=== PATIENT | male | born 2000 | race Hispanic/Latino ===

== ENCOUNTER 2021-12-25 02:28 | Emergency (ER) | payer SELFPAY ==
--- NOTE | ~2021-12-25 | XR_ITS ---
EXAMINATION: XR hand RT min 3V DATE: 12/25/2021 02:53 INDICATION: Right hand pain. TECHNIQUE: 4 views of right hand were obtained. COMPARISON: None. FINDINGS: There is a comminuted fracture of neck of fifth metacarpal. The main distal fracture fragme nt demonstrates impaction and 20 degrees palmar angulation. Joint spaces are normal. IMPRESSION: 1. Comminuted fracture of neck of fifth metacarpal. Reviewed, dictated and finalized at location A.
[2021-12-25 02:34] VITALS: BP 102/51; PULSE 73; RESP 18; TEMP 36.1; O2SAT 99
--- NOTE | 2021-12-25 02:42 | ED.UPPEXIN ---
HPI - Extremity Injury (Upper) General Chief Complaint: Extremity Injury, Upper Stated Complaint: right hand pain Time Seen by Provider: 12/25/21 02:38 Source: patient Mode of arrival: ambulatory Limitations: language barrier (Patient's girlfriend is interpreting, which he prefers) History of Present Illness HPI narrative: This is a 21-year-old male that presents to the emergency department after a right hand injury sustained just prior to arrival. Reports he punched a wall. Reports swelling and pain about the fifth metacarpal. Reports decreased range of motion due to pain. Denies numbness. Related Data Allergies Allergy/AdvReac Type Severity Reaction Status Date / Time No Known Allergies Allergy Verified 12/25/21 02:48 Review of Systems Review of Systems: CONSTITUTIONAL: Denies fever MUSCULOSKELETAL: Reports joint pain, and myalgia. NEUROLOGIC: Denies numbness All systems reviewed & are unremarkable except as noted in HPI and below PMFSH Past Medical History Medical History (Updated 12/25/21 @ 03:01 by Lynsey Yates PA-C) No active medical problems Social History Social History (Updated 12/25/21 @ 02:43 by Lynsey Yates PA-C) Smoking status: Current some day smoker Exam Narrative: GENERAL: Well-appearing, well-nourished, and in no acute distress. HEAD: Normocephalic, atraumatic. EYES: EOMI. EXTREMITIES: Normal range of motion. Edema noted about the right fifth metacarpophalangeal joint. Normal radial pulse. Normal sensation SKIN: Warm, dry, no rash. NEURO: No focal deficits. Alert and oriented x3. PSYCH: Normal mood and affect Course Vital Signs Vital signs: Vital Signs Temperature 97.0 F L 12/25/21 02:34 Pulse Rate 73 12/25/21 02:34 Respiratory Rate 18 12/25/21 02:34 Blood Pressure 102/51 L 12/25/21 02:34 Pulse Oximetry 99 12/25/21 02:34 Oxygen Delivery Room Air 12/25/21 02:34 Temperature 97.0 F L 12/25/21 02:34 Pulse Rate 73 12/25/21 02:34 Respiratory Rate 18 12/25/21 02:34 Blood Pressure 102/51 L 12/25/21 02:34 Pulse Oximetry 99 12/25/21 02:34 Oxygen Delivery Room Air 12/25/21 02:34 MDM - Extremity Injury (Upper) MDM Narrative Medical decision making narrative: Patient presents to the emergency department for pain around the right fifth metacarpal after punching a wall. Patient is neurovascularly intact. Right hand x-ray shows 1/5 metacarpal fracture. Patient placed in ulnar gutter. Will be given follow-up with hand surgery. He was given warnings to return to the ER Imaging Data My impression: Right hand x-ray: Closed displaced fracture neck of the fifth metacarpal Critical Care Time Critical Care Time Critical Care Time: No Discharge Plan Discharge Clinical Impression: Fracture of fifth metacarpal bone of right hand Patient Disposition: Home, Self-Care Condition: Stable Instructions: Hand Fracture (ED) Additional Instructions: Return to the emergency department if you experience fever, redness and swelling of your arm, numbness, or any other symptoms that are concerning to you Rest. Elevate. Ice to the area. [id number] pain medication as needed. Prescribed pain medication as needed Follow-up with hand surgery. Call to make an appointment Patient Language: Ukrainian Prescriptions: New hydrocodone-acetaminophen 5-325 mg tablet 1 tablet PO Q6H PRN (Reason: pain) Qty: 20 0RF Follow-up/Referrals: PHYSICIAN NOT ON STAFF,NONSTAFF [Primary Care Provider] -
[2021-12-25] MEDS: HYDROcodone/acetaminophen (*CRX) 5-325 MG TABLET 1 TAB PO (02:54)
== END 2021-12-25 03:22 | disposition home or self-care (01) ==
PROVIDERS: Emergency Provider Emergency Medicine
DX: S62.336A Displaced fracture of neck of fifth metacarpal bone, right hand, initial encounter for closed fracture (principal); F17.200 Nicotine dependence, unspecified, uncomplicated; W22.09XA Striking against other stationary object, initial encounter
CPT/HCPCS: 29125; 73130; 99284; A9270

== ENCOUNTER 2022-11-17 10:21 | Inpatient (IN) | payer SELFPAY ==
[2022-11-17] VITALS (7 sets, daily range): BP systolic 121–156; BP diastolic 85–99; PULSE 51–77; RESP 16–20; TEMP 36.5–36.6; O2SAT 97–100
--- NOTE | ~2022-11-17 | CT_ITS ---
EXAMINATION: CTA chest PE abdomen pel DATE: 11/20/2022 01:30 INDICATION: Necrotizing pancreatitis. Tachycardia. TECHNIQUE: Computed tomography angiography (CTA) of the chest was performed with 100 mL Omnipaque-350 intravenous contrast timed to evaluate the pulmonary arteries. Coronal maximum intensity projection 3D-reconstructions were created by the technologist. Computed tomography (CT) of the abdomen and pelv is was performed with intravenous contrast. Automated exposure control and iterative reconstruction t echnique were employed. The dose-length product was 1435.61 mGy-cm. COMPARISON: CT abdomen and pelvis 11/17/2022 FINDINGS: CTA chest: There are moderate-sized pleural effusions, left worse than right. There is dependent atel ectasis bilaterally. The heart size is normal. No pericardial effusion. There is no pulmonary embolus . The nasogastric tube tip is in the stomach. The bones are unremarkable. CT abdomen and pelvis: There is diffuse hepatic steatosis. The gallbladder is normal in size and cont ains contrast. The spleen, adrenal glands, and kidneys are normal. The pancreas demonstrates heteroge neous hypoattenuation. There is widespread fat stranding and fluid in the peritoneum and retroperiton eum centered at the pancreas. There is a small volume of ascites. The appendix is normal. There are n o dilated loops of bowel. There are no pathologically enlarged lymph nodes. Body wall edema is noted. The bones are unremarkable. IMPRESSION: 1. No pulmonary embolism. Sensitivity is mildly decreased by motion artifact. 2. Worsened findings of necrotic pancreatitis. 3. Worsened small volume of ascites. 4. Worsened moderate-sized pleural effusions. 5. Diffuse hepatic steatosis. Reviewed, dictated and finalized at location A.
--- NOTE | ~2022-11-17 | US_ITS ---
EXAMINATION: US abdomen limited DATE: 11/17/2022 13:54 INDICATION: Pancreatitis. TECHNIQUE: Multiple grayscale and Doppler ultrasound images of the abdomen were obtained. COMPARISON: CT abdomen and pelvis 11/17/2022 FINDINGS: The visualized portion of the body of the pancreas is normal. Note that ultrasound has poor sensitivity for pancreatitis. There is diffuse hepatic steatosis. There is normal flow in main roxanne l vein. The gallbladder is normal in size and contains sludge. No visible gallstones. No gallbladder wall thickening or sonographic Hendricks sign. The common duct is normal and measures 4 mm. IMPRESSION: 1. Diffuse hepatic steatosis. Reviewed, dictated and finalized at location A.
--- NOTE | ~2022-11-17 | XR_ITS ---
EXAMINATION: XR_KUBGTUBINS_CR DATE: 11/19/2022 10:49 INDICATION: Nasogastric tube placement. TECHNIQUE: An upright view of the abdomen was obtained. COMPARISON: CT abdomen and pelvis 11/17/2022 FINDINGS: The lower abdomen is excluded. There is dilated small bowel in the midabdomen. The colon is normal in caliber. The nasogastric tube tip is in the stomach. There is a small left pleural effusio n. There are airspace opacities at left lung base. IMPRESSION: 1. Nasogastric tube tip in the stomach. 2. Dilated small bowel, likely adynamic ileus. 3. Airspace opacities at left lung base, consistent with atelectasis versus pneumonia. 4. Small left pleural effusion. Reviewed, dictated and finalized at location A. IMPRESSION: 1. Nasogastric tube tip in the stomach. 2. Dilated small bowel, likely adynamic ileus. 3. Airspace opacities at left lung base, consistent with atelectasis versus pne umonia. 4. Small left pleural effusion.
--- NOTE | ~2022-11-17 | CT_ITS ---
EXAMINATION: CT abdomen pelvis w con DATE: 11/17/2022 12:24 INDICATION: Pancreatitis. Nausea, vomiting, and diarrhea. Abdominal pain. TECHNIQUE: Computed tomography (CT) of the abdomen and pelvis was performed with 100 mL Omnipaque 350 intravenous contrast. Automated exposure control and iterative reconstruction technique were employe d. The dose-length product was 514.70 mGy-cm. COMPARISON: None. FINDINGS: The visualized portions of the lung bases demonstrate mild atelectasis. No pleural effusion . The heart size is normal. No pericardial effusion. There is diffuse hepatic steatosis. The gallblad kalyan, spleen, adrenal glands, and kidneys are normal. There is hypoenhancement of the pancreas. There is fat stranding and fluid in the retroperitoneum centered around the pancreas. There is trace pelvic ascites. There are no dilated loops of bowel. The appendix is normal. There are no pathologically en larged lymph nodes. The bones are unremarkable. IMPRESSION: 1. Acute necrotic pancreatitis. 2. Diffuse hepatic steatosis. Reviewed, dictated and finalized at location A.
[2022-11-17 11:15] LABS: Basophils Percent Auto 0.3 % (0.2-1.2); Eosinophils Absolute Auto 0.1 K/mm3 (0-0.3); Eosinophils Percent Auto 0.4 % (0-4.4); Hematocrit 46.7 % (42.0-52.0); Hemoglobin 16.5 g/dL (14.0-18.0); Immature Granulocyte Absolute 0.04 K/mm3 (0.00-0.031); Immature Granulocyte Percent A 0.3 % (0-0.5); Lymphocytes Absolute Auto 1.94 K/mm3 (0.9-3.2); Lymphocytes Percent Auto 12.6 % (18.3-44.2); Mean Corpuscular HGB Conc 35.3 g/dl (32-36); Mean Corpuscular Hemoglobin 30.8 pg (26-34); Mean Corpuscular Volume 87.3 fl (80-100); Mean Platelet Volume 9.1 fl (7.4-10.4); Monocytes Absolute Auto 0.7 K/mm3 (0.1-0.6); Monocytes Percent Auto 4.7 % (2.6-8.5); Neutrophils Absolute Auto 12.6 K/mm3 (1.3-6.7); Neutrophils Percent Auto 81.7 % (45.5-73.1); Platelet Count Result 294 k/mm3 (150-375); Red Blood Count 5.35 M/mm3 (4.6-6.20); Red Cell Distribution Width 11.7 % (11.5-14.5); White Blood Count 15.4 K/mm3 (4.5-10.0)
[2022-11-17 11:26] LABS: Potassium 3.4 mmol/L (3.4-5.0)
[2022-11-17 11:30] LABS: Alanine Aminotransferase 161 U/L (6-50); Albumin Level 4.6 g/dL (3.5-5.1); Alkaline Phosphatase 113 U/L (38-126); Anion Gap 13 mmol/L (8-16); Aspartate Amino Transferase 83 U/L (17-59); Bilirubin,Total 2.2 mg/dL (0.2-1.3); Blood Urea Nitrogen 16 mg/dL (9-20); Calcium 9.4 mg/dL (8.4-10.2); Carbon Dioxide 22 mmol/L (22-30); Chloride 104 mmol/L (98-107); Estimated CRCL calculation 132 ml/min; Estimated Glomerular Filt Rate > 60; Glucose 138 mg/dL (65-110); Sodium 139 mmol/L (137-145)
[2022-11-17 11:56] LABS: Lipase 9186 U/L (23-300)
[2022-11-17] MEDS: SODIUM CHLORIDE 0.9% IV 1,000 ML 999 ML IV CONT ×2 (12:26→12:56)
[2022-11-17] MEDS: HYDROmorphone HCL INJ (*CRX) 1 MG/ML SYR IV PUSH ×3 (12:26→19:48)
[2022-11-17] MEDS: ONDANSETRON INJ 4 MG/2 ML VIAL IV PUSH (12:26)
--- NOTE | 2022-11-17 12:52 | ED.ABDPAIN ---
HPI - Abdominal Pain General Chief Complaint: Abdominal Pain Stated Complaint: abd pain Time Seen by Provider: 11/17/22 12:01 History of Present Illness HPI narrative: 22-year-old male who denies any significant past medical history presented to the ED for evaluation of abdominal pain that started yesterday. Patient did just return from [place] during which he reports he drank alcohol. Patient did have nausea vomiting and diarrhea with this. Patient reports that the diarrhea has resolved. Does still have persistent abdominal pain with nausea. Patient states he has had similar pain to this previously approximately a year ago but it resolved. Patient denies any prior history of gallbladder disease. Related Data Allergies Allergy/AdvReac Type Severity Reaction Status Date / Time No Known Allergies Allergy Verified 11/17/22 16:59 Review of Systems Review of Systems: All systems reviewed & are unremarkable except as noted in HPI and below PMFSH Past Medical History Medical History (Updated 11/17/22 @ 20:28 by Fermín Ferrer MD) Arm fracture No active medical problems Surgical History Surgical History (Updated 11/17/22 @ 13:47 by Anisa Quiroz NP) S/P ORIF (open reduction internal fixation) fracture right arm Family History Family History (Updated 11/17/22 @ 13:48 by Anisa Quiroz NP) Unknown No problems noted. Social History Social History (Updated 11/17/22 @ 17:59 by Anisa Quiroz NP) Social History: He occasionally smokes cigarettes maybe 1-2 a month. He smokes socially around his friends. . He occasionally drinks alcohol maybe 1-2 week. He is and has no children. 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 HEAD: normocephalic, atraumatic. EYES: PERRLA/EOMI, conjunctivae clear. NOSE: Normal no drainage EARS:TMS clear with good light reflex. THROAT: Pharynx clear, no exudate. NECK: Supple. No adenopathy, no masses. RESPIRATORY: Airway patent, respirations nonlabored. Clear to auscultation bilaterally, no rales, rhonchi, wheezing. CARDIOVASCULAR: Regular rate and rhythm without murmurs rubs or gallops. ABDOMINAL: Epigastric tenderness to palpation MUSCULOSKELETAL: Moves all extremities. Strength/ROM intact, No edema, No calf tenderness. NEURO: Alert. Cranial nerves II through XII intact. Grossly intact SKIN: Warm, dry. Normal Color Course Course Emergency Course: 22-year-old male presented ED for evaluation of abdominal pain. Patient was afebrile but does have a leukocytosis of 15.4. Patient does have elevated T. bili of 2.2, AST of 83 and an ALT of 161 with no elevation of his alk phos. Patient's lipase was 9186. CT scan did show evidence of acute necrotic pancreatitis. Patient was started on 2 L of IV fluids provided medications for nausea and for pain control. Blood cultures were ordered. GI was consulted. Case discussed with hospitalist and patient was excepted for admission. Vital Signs Vital signs: Vital Signs Temperature 97.7 F 11/17/22 10:21 Pulse Rate 54 L 11/17/22 10:21 Blood Pressure 121/90 11/17/22 10:21 Pulse Oximetry 100 11/17/22 10:21 Temperature 97.7 F 11/17/22 19:28 Pulse Rate 63 11/17/22 19:28 Respiratory Rate 18 11/17/22 19:28 Blood Pressure 140/85 11/17/22 19:28 Pulse Oximetry 99 11/17/22 19:28 Oxygen Delivery Room
[2022-11-17 12:58] LABS: Appearance Urine Clear (Clear); Bacteria Urine None Seen /hpf; Bilirubin Urine 1+ (Negative); Blood Urine Negative (Negative); Color Urine Dark Yellow (Yellow); Glucose Urine UA Negative (Negative); Ketones Urine Trace mg/dL (Negative); Leukocyte Esterase Ur Trace LEU/UL (Negative); Mucus Urine Present /lpf; Need Manual Microscopic Reviewed; Nitrate Urine Negative (Negative); Protein Urine 2+ mg/dL (Negative); RBC Urine 0-2 /hpf (0-2); Spermatozoa Urine Present; Squamous Epithelial Cell Urine None seen /hpf (Few); WBC Urine 0-5 /hpf; pH Urine 5.5 (5.0-9.0)
[2022-11-17 12:59] LABS: Add Urine Microscopic? YES; Specific Grav Ur 1.036 (1.001-1.035)
--- NOTE | 2022-11-17 13:45 | PM.IMHP ---
H&P: HPI History of Present Illness Date/Time: 11/17/22 13:45 Chief Complaint: Abdominal pain Narrative: This is a 22-year-old male patient who has his at the bedside. The is interpreting for the patient. 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 The patient last drink alcohol proximally a a day and half ago. She stated that he drink heavily but did not quantify how much he drank. The patient has been have having nausea vomiting and diarrhea with this. He also complains of epigastric pain that radiates down to the umbilicus area. The diarrhea has sustained. The patient has similar discomfort approximately 1 year ago but did not seek any medical treatment at that time. No prior history of any gallbladder disease. His white count is 15.4. Neutrophils 81.7. Glucose 138. Total bilirubin 2.2. AST is 83 ALT 161. Total protein 9.0 lipase 9186. On his urinalysis specific gravity 1.036. Urine protein 2+ trace ketones 1+ bilirubin trace leukocyte esterase. Abdominal pelvis CT was read as the following. Acute necrotic pancreatitis. 2. Diffuse hepatic steatosis. Abdominal ultrasound was read as diffuse hepatic steatosis. GI has been consulted. Normal saline, Zofran, Dilaudid and Zosyn were given in the emergency room. The patient is being admitted to inpatient status on the date of service of 11/17/2022. Review of Systems Review of Systems: All systems reviewed & are unremarkable except as noted in HPI and below Constitutional: Constitutional: Reports as per HPI and Reports no additional constitutional complaints Eyes: Eyes: Reports as per HPI and Reports no additional eye complaints ENT: Reports system reviewed and no additional complaints, except as documented and Reports Normal hearing present Cardiovascular: Cardiovascular: Reports no additional cardiovascular complaints Respiratory: Respiratory: Reports no additional respiratory complaints and Reports no additional respiratory complaints Gastrointestinal: Gastrointestinal: Reports as per HPI and Reports no additional gastrointestinal complaints Musculoskeletal: Musculoskeletal: Reports no additional musculoskeletal complaints Integumentary/Breasts: Skin/Breast: Reports system reviewed and no additional complaints, except as docu and Reports as per HPI Neurologic: Reports system reviewed and no additional complaints, except as documented, Reports as per HPI and Reports Normal hearing present Psychiatric: Psychiatric: Reports no additional psychiatric complaints and Reports as per HPI Endocrine: Endocrine: Reports no additional endocrine complaints Hematologic/Lymphatic: Hematologic/Lymphatic: Reports no additional hematologic/lymphatic complaints Allergic/Immunologic: Allergic/Immunologic: Reports no additional allergic/immunologic complaints [facility] Past Medical History Medical History (Updated 11/17/22 @ 17:45 by Anisa Quiroz NP) Arm fracture No active medical problems Surgical History Surgical History (Updated 11/17/22 @ 13:47 by Anisa Quiroz NP) S/P ORIF (open reduction internal fixation) fracture right arm Family History Family History (Updated 11/17/22 @ 13:48 by Anisa Quiroz NP) Unknown No problems noted. Social History Social History (Updated 11/17/22 @ 17:59 by Anisa Quiroz NP) Social History: He occasionally smokes cigarettes maybe 1-2 a month. He smokes socially around his friends. . He occasionally drinks alcohol maybe 1-2 week. He is and has no children. 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
[2022-11-17 14:16] LABS: Ethanol < 10 mg/dL (<10)
--- NOTE | 2022-11-17 14:56 | ADMGEN ---
This patient, Cassius Sullivan, was admitted to Medical Room 349-01. Patient/family oriented to hospital policies and general routines including ID bracelet, bed and alarms, visiting hours, pain management, procedures, bathroom and other care routines, personal items, smoking policy, room service/diet, and visiting hours. Information on how to activate the Rapid Response Team has been discussed. Patient/Family are encouraged to report perceived risks to care and to ask questions if they do not understand what they are told or what they should do.
[2022-11-17] MEDS: SODIUM CHLORIDE 0.9% IV 1,000 ML 250 ML IV CONT (15:22)
[2022-11-17] MEDS: PIPERACILLN/TAZ 3.375GM/NS50ML 3.375 GM/50 ML BAG IVPB ×3 (15:29→23:58)
[2022-11-17] MEDS: SODIUM CHLORIDE 0.9% IV 1,000 ML 125 ML IV CONT (19:49)
[2022-11-17 23:52] LABS: Glucose Point of Care 261 mg/dl (65-105)
[2022-11-18] VITALS (12 sets, daily range): BP systolic 142–156; BP diastolic 83–98; PULSE 96–158; RESP 18–22; TEMP 36.4–36.7; O2SAT 95–100
[2022-11-18 05:11] LABS: Glucose Point of Care 309 mg/dl (65-105)
[2022-11-18] MEDS: PIPERACILLN/TAZ 3.375GM/NS50ML 3.375 GM/50 ML BAG IVPB ×4 (05:52→23:55)
[2022-11-18] MEDS: SODIUM CHLORIDE 0.9% IV 1,000 ML 125 ML IV CONT ×3 (05:52→22:48)
[2022-11-18] MEDS: INSULIN ASPART (*BKC) 100 UNITS/ML SUB-Q ×4 (05:53→23:58)
[2022-11-18] MEDS: HYDROmorphone HCL INJ (*CRX) 1 MG/ML SYR IV PUSH ×4 (06:00→20:40)
[2022-11-18 06:01] LABS: Basophils Percent Auto 0.1 % (0.2-1.2); Hematocrit 45.6 % (42.0-52.0); Hemoglobin 15.8 g/dL (14.0-18.0); Immature Granulocyte Absolute 0.02 K/mm3 (0.00-0.031); Immature Granulocyte Percent A 0.2 % (0-0.5); Lymphocytes Absolute Auto 0.72 K/mm3 (0.9-3.2); Lymphocytes Percent Auto 7.6 % (18.3-44.2); Mean Corpuscular HGB Conc 34.6 g/dl (32-36); Mean Corpuscular Hemoglobin 30.5 pg (26-34); Mean Platelet Volume 9.3 fl (7.4-10.4); Monocytes Absolute Auto 0.5 K/mm3 (0.1-0.6); Monocytes Percent Auto 5.2 % (2.6-8.5); Neutrophils Absolute Auto 8.3 K/mm3 (1.3-6.7); Neutrophils Percent Auto 86.9 % (45.5-73.1); Platelet Count Result 239 k/mm3 (150-375); Red Blood Count 5.18 M/mm3 (4.6-6.20); Red Cell Distribution Width 12.1 % (11.5-14.5); White Blood Count 9.5 K/mm3 (4.5-10.0)
[2022-11-18 06:28] LABS: Alanine Aminotransferase 111 U/L (6-50); Albumin Level 3.9 g/dL (3.5-5.1); Alkaline Phosphatase 90 U/L (38-126); Anion Gap 12 mmol/L (8-16); Aspartate Amino Transferase 118 U/L (17-59); Bilirubin,Total 2.8 mg/dL (0.2-1.3); Blood Urea Nitrogen 15 mg/dL (9-20); Calcium 7.7 mg/dL (8.4-10.2); Carbon Dioxide 20 mmol/L (22-30); Chloride 102 mmol/L (98-107); Estimated CRCL calculation 137 ml/min; Estimated Glomerular Filt Rate > 60; Glucose 300 mg/dL (65-110); Lactate Dehydrogenase 481 U/L (120-246); Magnesium 1.5 mg/dL (1.6-2.3); Potassium 4.4 mmol/L (3.4-5.0); Sodium 134 mmol/L (137-145)
[2022-11-18 09:04] LABS: Lipase 4109 U/L (23-300)
[2022-11-18] MEDS: MAGNESIUM SULF 2 GM/WATER 50ML 2 GM/50 ML BAG IVPB (09:42)
[2022-11-18] MEDS: THIAMINE HCL 200 MG/2 ML VIAL 100 MG IV PUSH (09:43)
[2022-11-18] MEDS: FOLIC ACID 1 MG/0.2 ML INJ IV PUSH (09:43)
--- NOTE | 2022-11-18 10:35 | WPDGICN ---
Assessment and Plan Assessment and plan (1) Acute necrotizing pancreatitis: Code(s): K85.91 - Acute pancreatitis with uninfected necrosis, unspecified Status: Acute Assessment and Plan: Patient with CT scan imaging suggesting acute necrotizing pancreatitis. Patient has mild elevation of the LFTs. His white count remains normal. No gallstones seen on imaging studies. This appears to be on the basis of alcoholism. Plan for supportive care. Patient appears to have a concomitant ileus as there are absent bowel sounds and no recent bowel movement. Patient should be kept NPO for now. Until ileus resolves. He will need IV fluid rehydration currently in progress. GI Consult Note Consult date/time: 11/18/22 10:35 Reason for consult: Acute pancreatitis. HPI: Cassius Sullivan is a 22 year old male I am asked to see at the request of the emergency room because of acute pancreatitis. Patient is speaking. Patient seen with the assistance of his who translates. Patient works as a migrant worker. Was [place] week ago with rather have can't amount of alcohol intake. Patient presented to the emergency room yesterday with significant nausea and vomiting. Patient had epigastric pain that persists today. In the emergency room lipase was noted to be quite elevated. CT scan imaging her 6 consistent with acute necrotizing pancreatitis. Patient denies any fever. He states he had a bowel movement yesterday morning but has had none since. He feels somewhat distended. Patient denies any bleeding. Family history noncontributory. Review of Systems Review of Systems: Review of systems noncontributory. [facility] Past Medical History Medical History (Updated 11/17/22 @ 20:28 by Fermín Ferrer MD) Arm fracture No active medical problems Surgical History Surgical History (Updated 11/17/22 @ 13:47 by Anisa Quiroz NP) S/P ORIF (open reduction internal fixation) fracture right arm Family History Family History (Updated 11/17/22 @ 13:48 by Anisa Quiroz NP) Unknown No problems noted. Social History Social History (Updated 11/17/22 @ 17:59 by Anisa Quiroz NP) Social History: He occasionally smokes cigarettes maybe 1-2 a month. He smokes socially around his friends. . He occasionally drinks alcohol maybe 1-2 week. He is and has no children. 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 Code status full code Smoking status: Current some day smoker Alcohol intake: current Substance use: never Lack of Transportation: No Lack of Food: Never True Current Housing: I Have Housing Concerned About Future Housing: No Difficulty Paying Gas/Electric Bills: No Difficulty Paying for Meds: YES Currently Unemployed: No Education: Decline to Answer Difficulty w/ Childcare or Family Care: No Spiritual care concerns: No Meds Home Medications and Allergies Home Medications Medication Instructions Recorded Confirmed Type hydrocodone 5 mg-acetaminophen 325 1 tablet PO Q6H PRN pain #15 tabs 12/26/21 11/17/22 Rx mg tablet Allergies Allergy/AdvReac Type Severity Reaction Status Date / Time No Known Allergies Allergy Verified 11/17/22 16:59 Vital Signs Vital Signs - 24 hr 11/17/22 11:48 11/17/22 14:40 11/17/22 16:11 Temperature 97.9 F Pulse Rate 74 68 51 L Pulse Rate [Left Radial] Respiratory Rate 20 16 16 Blood Pressure 138/92 H 156/99 H 141/97 H Pulse Oximetry 100 99 97 Oxygen Delivery 11/17/22 15:51 11/17/22 19:28 11/17/22 20:00 Temperature 97.7 F Pulse Rate 68 63 77 Pulse Rate [Left Radial] Respiratory Rate 16 18 Blood Pressure 140/85 Pulse Oximetry 97 99 Oxygen Delivery Room Air 11/17/22 20:00 11/18/22 00:00 11/18/22 04:00 Temperature Pulse Rate Pulse Rate [Left Radial] 96 106 H Respiratory Rate Bl
[2022-11-18 12:12] LABS: Glucose Point of Care 280 mg/dl (65-105)
--- NOTE | 2022-11-18 13:23 | PM.IMPN ---
Progress Note: A&P Assessment and Plan (1) Acute necrotizing pancreatitis: Code(s): K85.91 - Acute pancreatitis with uninfected necrosis, unspecified Status: Acute Assessment and Plan: Patient presents with abdominal pain.CT of the abdomen/pelvis sowing acute necrotic pancreatitis with diffuse hepatic steatosis.The GB was normal. Lipase was 9186. Abd US showing diffuse hepatic steatosis but no gallstones or evidence of cholecystitis. Suspect pancreatitis related to alcoholism. GI consulted. Patient NPO. Repeat lipase better. WBC normal. Monitor clinically and with serial lipase values. Start diet tomorrow if clinically improving. Continue IV fluids. Zosyn started but okay to stop if okay with GI. Okay to stop tele. Check TG (2) Alcoholism: Code(s): F10.20 - Alcohol dependence, uncomplicated Status: Acute Assessment and Plan: Patient drinks alcohol daily with increased amount when in [place] recently. CIWA protocol started. Start Thiamine and Folate. Medications available as needed for s/sx of withdrawal. Patient was educated about the benefits of abstaining from alcohol. (3) Hyperglycemia: Code(s): R73.9 - Hyperglycemia, unspecified Status: Acute Assessment and Plan: Glucose elevated on admission and higher now. Continue AccuCheks covering with sliding scale. Hypoglycemia protocol available as needed. Check A1c. (4) Elevated LFTs: Code(s): R79.89 - Other specified abnormal findings of blood chemistry Status: Acute Assessment and Plan: LFTs mildly elevated related to above. Could also be related to alcoholic hepatitis. Imaging as mentioned above. Will check hepatitis panel. Continue to monitor (5) Hepatic steatosis: Code(s): K76.0 - Fatty (change of) liver, not elsewhere classified Status: Acute Assessment and Plan: As above. Check lipid panel. Subjective Date/time seen: 11/18/22 13:23 Interval history: 22yo healthy male here for abdominal pain and found to have pancreatitis. int he room and she translates. Patient drinks 16-32oz beer daily and 32-48oz on the weekends. He was in [place] vacationing and drank excessive amounts of alcohol. He had similar symptoms one year ago but pain was milder and sx resolved without needing medical intervention. Feels better today. Pain decreased. No flatus or BMs. Exam Narrative: AF 98.0 151/95 99 18 100% ra Gen - NARD Chest - decreased BS in the bases o/w clear. nml RR CV - RRR S1/S2 Abd - Soft, +BS, diffusely tender worse in the epigastric region. Ext - No pedal edema Psych - Nml mood and affect Skin - Warm and dry Objective Data Vital Signs Vital Signs: Vital Signs - 24 hr 11/17/22 14:40 11/17/22 16:11 11/17/22 15:51 Temperature 97.9 F Pulse Rate 68 51 L 68 Pulse Rate [Left Radial] Respiratory Rate 16 16 16 Blood Pressure 156/99 H 141/97 H Pulse Oximetry 99 97 97 Oxygen Delivery Room Air 11/17/22 19:28 11/17/22 20:00 11/17/22 20:00 Temperature 97.7 F Pulse Rate 63 77 Pulse Rate [Left Radial] Respiratory Rate 18 Blood Pressure 140/85 Pulse Oximetry 99 Oxygen Delivery Room Air 11/18/22 00:00 11/18/22 04:00 11/18/22 00:00 Temperature Pulse Rate 101 H Pulse Rate [Left Radial] 96 106 H Respiratory Rate Blood Pressure Pulse Oximetry Oxygen Delivery 11/18/22 04:00 11/18/22 05:10 11/18/22 09:45 Temperature 98.0 F Pulse Rate 96 106 H Pulse Rate [Left Radial] 106 H Respiratory Rate 18 Blood Pressure 151/95 H Pulse Oximetry 100 Oxygen Delivery 11/18/22 09:45 Temperature Pulse Rate Pulse Rate [Left Radial] Respiratory Rate Blood Pressure Pulse Oximetry Oxygen Delivery Room Air Intake/Output Intake/Output: Intake & Output 11/15/22 11/16/22 11/17/22 11/18/22 23:59 23:59 23:59 23:59 Intake Total 3050 1150 Balance 3050 1150 Meds/Results Medicati
[2022-11-18 17:48] LABS: Glucose Point of Care 300 mg/dl (65-105)
[2022-11-18] MEDS: LORazepam INJ (*CRX) 2 MG/ML VIAL IV PUSH (20:37)
[2022-11-18] MEDS: SODIUM CHLORIDE 0.9% IV 1,000 ML 999 ML IV CONT (21:21)
[2022-11-18] MEDS: METOPROLOL TARTRATE INJ 5 MG/5 ML VIAL IV PUSH (21:34)
[2022-11-19] VITALS (15 sets, daily range): BP systolic 123–145; BP diastolic 77–95; PULSE 122–154; RESP 18–20; TEMP 36.3–37.8; O2SAT 92–97
[2022-11-19 00:03] LABS: Glucose Point of Care 265 mg/dl (65-105)
[2022-11-19] MEDS: HYDROmorphone HCL INJ (*CRX) 1 MG/ML SYR IV PUSH ×6 (01:41→23:57)
[2022-11-19] MEDS: LORazepam INJ (*CRX) 2 MG/ML VIAL IV PUSH ×2 (01:55→06:00)
[2022-11-19] MEDS: SODIUM CHLORIDE 0.9% IV 1,000 ML 999 ML IV CONT (02:13)
[2022-11-19] MEDS: SODIUM CHLORIDE 0.9% IV 1,000 ML 200 ML IV CONT ×3 (02:13→23:23)
[2022-11-19] MEDS: PIPERACILLN/TAZ 3.375GM/NS50ML 3.375 GM/50 ML BAG IVPB ×4 (06:00→23:16)
[2022-11-19] MEDS: INSULIN ASPART (*BKC) 100 UNITS/ML SUB-Q ×3 (06:00→23:23)
[2022-11-19] MEDS: SODIUM CHLORIDE 0.9% IV 1,000 ML 500 ML IV CONT (06:30)
[2022-11-19 06:46] LABS: Hematocrit 42.9 % (42.0-52.0); Hemoglobin 14.7 g/dL (14.0-18.0); Mean Corpuscular HGB Conc 34.3 g/dl (32-36); Mean Corpuscular Hemoglobin 30.8 pg (26-34); Mean Corpuscular Volume 89.9 fl (80-100); Platelet Count Result 190 k/mm3 (150-375); Red Blood Count 4.77 M/mm3 (4.6-6.20); Red Cell Distribution Width 12.3 % (11.5-14.5); White Blood Count 5.9 K/mm3 (4.5-10.0)
[2022-11-19 07:00] LABS: Hemoglobin A1C 5.4 % (<5.7)
[2022-11-19 07:04] LABS: Alanine Aminotransferase 80 U/L (6-50); Albumin Level 3.2 g/dL (3.5-5.1); Alkaline Phosphatase 60 U/L (38-126); Anion Gap 7 mmol/L (8-16); Aspartate Amino Transferase 111 U/L (17-59); Bilirubin,Total 2.5 mg/dL (0.2-1.3); Blood Urea Nitrogen 15 mg/dL (9-20); Calcium 7.1 mg/dL (8.4-10.2); Carbon Dioxide 21 mmol/L (22-30); Chloride 106 mmol/L (98-107); Cholesterol 111 mg/dL (0-200); Estimated CRCL calculation 137 ml/min; Estimated Glomerular Filt Rate > 60; Glucose 247 mg/dL (65-110); HDL Direct 21 mg/dL; Magnesium 2.2 mg/dL (1.6-2.3); Potassium 4.1 mmol/L (3.4-5.0); Sodium 134 mmol/L (137-145); Triglycerides 229 mg/dL (<150)
[2022-11-19 07:12] LABS: LDL Cholesterol Direct 67 mg/dL
[2022-11-19 07:18] LABS: Lipase 2391 U/L (23-300)
[2022-11-19 07:39] LABS: HIV 1/2 Ab P24 Ag Result Negative (Negative)
--- NOTE | 2022-11-19 07:52 | ECG_ITS ---
Measurements Intervals [place] Rate: 143 P: 20 AK: 124 QRS: 9 QRSD: 77 T: 18 QT: 278 QTc: 429 Interpretive Statements SINUS TACHYCARDIA, OTHERWISE NORMAL ECG NO PREVIOUS ECG AVAILABLE FOR COMPARISON Electronically Signed On 11-19-2022 12:04:18 CDT by Jamshid Rm M.D.
[2022-11-19 08:05] LABS: Band Neutrophils Percent 36 % (0-6); Lymphocytes Absolute Manual 0.64 K/mm3 (1.1-4.5); Metamyelocytes Percent 2 %; Myelocytes Percent 1 %; Neutrophils Absolute Manual 5.07 K/mm3 (1.3-6.7); Neutrophils Percent Manual 50 % (46-73); Platelet Estimate Adequate (Adequate); Schistocytes None Seen (NORMAL); Total Cells Counted 100
[2022-11-19 08:06] LABS: Smudge Cells FEW
--- NOTE | 2022-11-19 08:45 | WPDGIPROGNO ---
Progress Note: A&P Assessment and Plan (1) Alcoholism: Code(s): F10.20 - Alcohol dependence, uncomplicated Status: Acute Assessment and Plan: Alcohol appears be etiology for acute pancreatitis. Strict alcohol avoidance strongly encouraged. (2) Acute necrotizing pancreatitis: Code(s): K85.91 - Acute pancreatitis with uninfected necrosis, unspecified Status: Acute Assessment and Plan: Patient with acute necrotizing pancreatitis. Patient appears to also have an ileus. With no bowel sounds and abdominal distention. NG tube for decompression will be place. Lipase remains 2390 today. Continue NPO. Supportive care with IV fluids and pain control. Subjective Date/time seen: 11/19/22 08:45 Interval history: Patient reports abdominal pain is lessened somewhat. Still no recent bowel movement. Complains of diffuse abdominal discomfort distention. Review of Systems Review of Systems: Review of systems noncontributory. Exam Narrative: Physical exam reveals patient to be alert. Vital signs stable. HEENT exam reveals no icterus. Lungs are clear. Heart without murmur. Abdomen bowel sounds absent. Mild tympany diffusely. No organomegaly evident. Objective Data Vital Signs Vital Signs: Vital Signs - 24 hr 11/18/22 09:45 11/18/22 09:45 11/18/22 12:00 Temperature Pulse Rate Pulse Rate [Left Radial] 106 H 99 Respiratory Rate Blood Pressure Pulse Oximetry Oxygen Delivery Room Air 11/18/22 14:44 11/18/22 12:00 11/18/22 16:00 Temperature 97.8 F Pulse Rate 101 H 108 H 119 H Pulse Rate [Left Radial] Respiratory Rate 22 H Blood Pressure 156/98 H Pulse Oximetry 99 Oxygen Delivery 11/18/22 19:37 11/18/22 20:00 11/18/22 21:34 Temperature 97.6 F Pulse Rate 116 H 143 H Pulse Rate [Left Radial] 136 H Respiratory Rate 20 Blood Pressure 143/83 H Pulse Oximetry 95 Oxygen Delivery 11/18/22 21:00 11/18/22 20:00 11/18/22 20:00 Temperature Pulse Rate 158 H 133 H Pulse Rate [Left Radial] Respiratory Rate Blood Pressure 142/95 H Pulse Oximetry Oxygen Delivery Room Air 11/19/22 00:00 11/19/22 00:00 11/19/22 01:59 Temperature 98.0 F Pulse Rate 122 H 144 H Pulse Rate [Left Radial] 122 H Respiratory Rate 20 Blood Pressure 137/94 H Pulse Oximetry 93 Oxygen Delivery 11/19/22 04:00 11/19/22 04:00 11/19/22 05:26 Temperature 98.7 F Pulse Rate 133 H 135 H Pulse Rate [Left Radial] 133 H Respiratory Rate 20 Blood Pressure 145/95 H Pulse Oximetry 93 Oxygen Delivery 11/19/22 07:45 11/19/22 08:28 Temperature 100.0 F H Pulse Rate 147 H Pulse Rate [Left Radial] Respiratory Rate Blood Pressure 140/94 H Pulse Oximetry 95 92 Oxygen Delivery Room Air Intake/Output Intake/Output: Intake & Output 11/16/22 11/17/22 11/18/22 11/19/22 23:59 23:59 23:59 23:59 Intake Total 3050 4200 2200 Output Total 230 Balance 3050 4200 1970 Meds/Results Medications: Active Medications Generic Name Dose Route Start Last Admin Trade Name Freq PRN Reason Stop Dose Admin Chlordiazepoxide HCl 25 mg 11/17/22 18:00 Chlordiazepoxide (*Crx) 25 Mg Capsule PO Q6H PRN Withdrawal Dextrose 12.5 gm 11/18/22 05:42 Dextrose 50% 25 Gm/50 Ml Syringe IV PUSH PRN PRN Hypoglycemia Protocol Folic Acid 1 mg 11/18/22 09:00 11/18/22 09:43 Folic Acid 1 Mg/0.2 Ml Inj IV PUSH 1 mg QAM NICHOLE Administration Glucagon 1 mg 11/18/22 05:42 Glucagon For Inj 1 Mg Vial IM PRN PRN Hypoglycemia Protocol Glucose 15 gm 11/18/22 05:42 Glucose Oral Gel 15 Gm Of Glucse In 37.5 Gm Tube PO PRN PRN Hypoglycemia Protocol Haloperidol Lactate 2 mg 11/17/22 18:00 Haloperidol Lactate 5 Mg/Ml Vial IV PUSH Q2H PRN Delirium Hydromorphone HCl 1 mg 11/17/22 13:50 11/19/22 05:28 Hydromo
--- NOTE | 2022-11-19 08:59 | PM.IMPN ---
Progress Note: A&P Assessment and Plan (1) Acute necrotizing pancreatitis: Code(s): K85.91 - Acute pancreatitis with uninfected necrosis, unspecified Status: Acute Assessment and Plan: Patient presents with abdominal pain. CT of the abdomen/pelvis showing acute necrotic pancreatitis with diffuse hepatic steatosis.The GB was normal. Lipase was 9186. Abd US showing diffuse hepatic steatosis but no gallstones or evidence of cholecystitis. TG 229. Suspect pancreatitis related to alcoholism. GI consulted. Patient NPO. Repeat lipase trending down. WBC remaining normal but with 36% bands and now having low grade fevers related to pancreatitis. Sinus tachycardia worse probably related to the pancreaittis and 3rd spacing of fluids. IVF rate increased. Monitor clinically and with serial lipase values. Continue IV fluids at current rate. Continue Zosyn per GI. Check KUB to exclude ileus. Repeat CT abd in a few days to assess pancreatic necrosis. Move to IMU. (2) Alcoholism: Code(s): F10.20 - Alcohol dependence, uncomplicated Status: Acute Assessment and Plan: Patient drinks alcohol daily with increased amount when in [place] recently. CIWA score 0-4 range. Continue Thiamine and Folate. Medications available as needed for s/sx of withdrawal. Patient was educated about the benefits of abstaining from alcohol. (3) Hyperglycemia: Code(s): R73.9 - Hyperglycemia, unspecified Status: Acute Assessment and Plan: Glucose elevated on admission and higher now. A1c 5.4. Hyperglycemia related to pancreatic dysfunction. Continue AccuCheks covering with sliding scale. Hypoglycemia protocol available as needed. Add low dose Lantus (4) Elevated LFTs: Code(s): R79.89 - Other specified abnormal findings of blood chemistry Status: Acute Assessment and Plan: LFTs elevated related to above. Could also be related to alcoholic hepatitis. Hepatitis panel pending; HIV negative. Imaging as mentioned above. Continue to monitor (5) Hepatic steatosis: Code(s): K76.0 - Fatty (change of) liver, not elsewhere classified Status: Acute Assessment and Plan: Lipid panel noted. As above. Plan 40 minutes spent on critical care time Subjective Date/time seen: 11/19/22 08:59 Interval history: 22yo healthy male here for abdominal pain and found to have pancreatitis. in the room and she translates. Tachycardic overnight treated with IV fluids. Patient has been up walking in the halls. No flatus or BMs. Abd pain better. No dysuria or hematuria. No n/v. No diaphoresis or tremors. Exam Narrative: Tm 100.0 140/94 147 20 92% ra Gen - NARD sitting up in chair Chest - decreased BS in the bases o/w clear. nml RR CV - tachycardic, regular. Tele showing sinus tachycardia Abd - Soft, hypoactive BS, diffusely tender and distended. no rebound. Ext - No pedal edema Psych - Nml mood and affect. oriented x4 Skin - Warm and dry Bladder US 250mL Objective Data Vital Signs Vital Signs: Vital Signs - 24 hr 11/18/22 09:45 11/18/22 09:45 11/18/22 12:00 Temperature Pulse Rate Pulse Rate [Left Radial] 106 H 99 Respiratory Rate Blood Pressure Pulse Oximetry Oxygen Delivery Room Air 11/18/22 14:44 11/18/22 12:00 11/18/22 16:00 Temperature 97.8 F Pulse Rate 101 H 108 H 119 H Pulse Rate [Left Radial] Respiratory Rate 22 H Blood Pressure 156/98 H Pulse Oximetry 99 Oxygen Delivery 11/18/22 19:37 11/18/22 20:00 11/18/22 21:34 Temperature 97.6 F Pulse Rate 116 H 143 H Pulse Rate [Left Radial] 136 H Respiratory Rate 20 Blood Pressure 143/83 H Pulse Oximetry 95 Oxygen Delivery 11/18/22 21:00 11/18/22 20:00 11/18/22 20:00 Temperature Pulse Rate 158 H 133 H Pulse Rate [Left Radial] Respiratory Rate Blood Pressure 142/95 H Pulse Oximetry Oxygen Delivery Room Air 11/19/22 00:00
[2022-11-19] MEDS: THIAMINE HCL 200 MG/2 ML VIAL 100 MG IV PUSH (09:32)
[2022-11-19] MEDS: INSULIN GLARGINE (*BKC) 100 UNITS/ML 8 UNITS SUB-Q (09:48)
[2022-11-19 10:09] LABS: Hepatitis B Surface Antigen Negative (Negative)
[2022-11-19 10:15] LABS: HAV RESULT Negative (Negative); Hepatitis B Core IgM Result Negative (Negative)
[2022-11-19 10:26] LABS: Hepatitis C Virus Antibody Negative (Negative)
[2022-11-19] MEDS: ONDANSETRON INJ 4 MG/2 ML VIAL IV PUSH ×2 (10:31→16:26)
[2022-11-19] MEDS: FOLIC ACID 1 MG/0.2 ML INJ IV PUSH (10:31)
--- NOTE | 2022-11-19 11:00 | PC.NURSE ---
This patient, Cassius Sullivan, was received from [ ] on 11/19/22 at 1523. Patient/family oriented to unit policies and routines
[2022-11-19 17:03] LABS: Glucose Point of Care 271 mg/dl (65-105)
[2022-11-19 23:24] LABS: Glucose Point of Care 250 mg/dl (65-105)
[2022-11-20] VITALS (14 sets, daily range): BP systolic 130–146; BP diastolic 70–91; PULSE 104–142; RESP 18–20; TEMP 36.3–37.6; O2SAT 94–100
[2022-11-20] MEDS: PIPERACILLN/TAZ 3.375GM/NS50ML 3.375 GM/50 ML BAG IVPB ×2 (05:01→11:46)
[2022-11-20 05:02] LABS: Hematocrit 37.8 % (42.0-52.0); Mean Corpuscular HGB Conc 34.4 g/dl (32-36); Mean Platelet Volume 9.6 fl (7.4-10.4); Platelet Count Result 184 k/mm3 (150-375); Red Cell Distribution Width 12.3 % (11.5-14.5); White Blood Count 5.4 K/mm3 (4.5-10.0)
[2022-11-20] MEDS: SODIUM CHLORIDE 0.9% IV 1,000 ML 200 ML IV CONT (05:02)
[2022-11-20] MEDS: HYDROmorphone HCL INJ (*CRX) 1 MG/ML SYR IV PUSH ×3 (05:08→23:22)
[2022-11-20 05:15] LABS: Alanine Aminotransferase 62 U/L (6-50); Albumin Level 3.1 g/dL (3.5-5.1); Alkaline Phosphatase 53 U/L (38-126); Anion Gap 3 mmol/L (8-16); Aspartate Amino Transferase 97 U/L (17-59); Bilirubin,Total 2.8 mg/dL (0.2-1.3); Blood Urea Nitrogen 10 mg/dL (9-20); Calcium 7.1 mg/dL (8.4-10.2); Carbon Dioxide 25 mmol/L (22-30); Chloride 105 mmol/L (98-107); Estimated CRCL calculation 155 ml/min; Estimated Glomerular Filt Rate > 60; Glucose 188 mg/dL (65-110); Lipase 1265 U/L (23-300); Potassium 3.7 mmol/L (3.4-5.0); Sodium 133 mmol/L (137-145)
[2022-11-20 05:47] LABS: Band Neutrophils Percent 24 % (0-6); Eosinophils Percent Manual 2 % (0-4); Lymphocytes Absolute Manual 1.13 K/mm3 (1.1-4.5); Lymphocytes Percent Manual 21 % (18-44); Monocytes Absolute Manual 0.64 K/mm3 (0.1-0.90); Monocytes Percent Manual 12 % (3-9); Neutrophils Absolute Manual 3.51 K/mm3 (1.3-6.7); Neutrophils Percent Manual 41 % (46-73); Platelet Estimate Adequate (Adequate); Polychromasia 1+ (NORMAL); Schistocytes None Seen (NORMAL); Total Cells Counted 100
[2022-11-20] MEDS: INSULIN GLARGINE (*BKC) 100 UNITS/ML 8 UNITS SUB-Q (08:13)
[2022-11-20] MEDS: FOLIC ACID 1 MG/0.2 ML INJ IV PUSH (08:13)
[2022-11-20] MEDS: THIAMINE HCL 200 MG/2 ML VIAL 100 MG IV PUSH (08:13)
--- NOTE | 2022-11-20 10:42 | WPDGIPROGNO ---
Progress Note: A&P Assessment and Plan (1) Acute necrotizing pancreatitis: Code(s): K85.91 - Acute pancreatitis with uninfected necrosis, unspecified Status: Acute Assessment and Plan: Patient with acute pancreatitis on the basis of alcohol use. Necrotizing features noted on imaging studies. Plan to consider at continue conservative management. Will discontinue NG tube as his bowel function is returning. Perhaps start ice chips and gradually allow liquid diet. Antibiotics not necessary as there is no fever no signs of infection at present. (2) Alcoholism: Code(s): F10.20 - Alcohol dependence, uncomplicated Status: Acute Assessment and Plan: Strict alcohol avoidance strongly encouraged. (3) Elevated LFTs: Code(s): R79.89 - Other specified abnormal findings of blood chemistry Status: Acute Assessment and Plan: LFTs appear to be related to his acute pancreatitis. At some point follow-up CT scan would be indicated prior to discharge. Subjective Date/time seen: 11/20/22 10:42 Interval history: Patient alert more comfortable this morning. Sitting on edge of bed. States he had bowel movement. Abdomen feels less distention. She large amount of NG tube output noted over evening. Review of Systems Review of Systems: Review of systems noncontributory. Exam Narrative: Physical exam reveals patient to be alert. Vital signs stable. HEENT exam reveals no icterus. Lungs are clear. Heart without murmur. Abdomen bowel sounds are present but still sluggish. Abdomen softer. Extremities without clubbing or edema. Objective Data Vital Signs Vital Signs: Vital Signs - 24 hr 11/19/22 12:07 11/19/22 12:00 11/19/22 12:00 Temperature 97.4 F L Pulse Rate 149 H 149 H Pulse Rate [Left Radial] 141 H Respiratory Rate 18 18 Blood Pressure 123/86 123/86 Pulse Oximetry 94 94 Oxygen Delivery Room Air 11/19/22 16:00 11/19/22 12:00 11/19/22 16:00 Temperature 99.8 F H Pulse Rate 148 H 141 H 151 H Pulse Rate [Left Radial] Respiratory Rate 20 Blood Pressure 132/90 Pulse Oximetry 94 Oxygen Delivery 11/19/22 16:00 11/19/22 16:00 11/19/22 20:11 Temperature 97.8 F Pulse Rate 151 H 134 H Pulse Rate [Left Radial] 141 H Respiratory Rate 20 18 Blood Pressure 132/90 136/93 H Pulse Oximetry 94 94 Oxygen Delivery Room Air 11/19/22 20:00 11/19/22 20:00 11/19/22 20:00 Temperature Pulse Rate 134 H 154 H Pulse Rate [Left Radial] 141 H Respiratory Rate 18 Blood Pressure 136/93 H Pulse Oximetry 94 Oxygen Delivery Room Air 11/19/22 22:00 11/19/22 23:30 11/20/22 00:00 Temperature 97.8 F Pulse Rate 135 H 137 H 137 H Pulse Rate [Left Radial] Respiratory Rate 20 20 Blood Pressure 123/77 Pulse Oximetry 97 97 Oxygen Delivery Room Air 11/20/22 00:00 11/20/22 02:00 11/20/22 04:00 Temperature Pulse Rate 140 H 136 H 136 H Pulse Rate [Left Radial] Respiratory Rate 20 Blood Pressure Pulse Oximetry 97 Oxygen Delivery Room Air 11/20/22 04:00 11/20/22 04:00 11/20/22 06:00 Temperature 97.8 F Pulse Rate 130 H 133 H 142 H Pulse Rate [Left Radial] Respiratory Rate 20 Blood Pressure 130/70 Pulse Oximetry 94 Oxygen Delivery 11/20/22 08:47 11/20/22 08:00 11/20/22 08:00 Temperature 98.3 F Pulse Rate 121 H 119 H Pulse Rate [Left Radial] Respiratory Rate 18 Blood Pressure 146/81 H Pulse Oximetry 98 98 Oxygen Delivery Room Air 11/20/22 10:00 Temperature Pulse Rate 118 H Pulse Rate [Left Radial] Respiratory Rate Blood Pressure Pulse Oximetry Oxygen Delivery Intake/Output Intake/Output: Intake & Output 11/17/22 11/18/22 11/19/22 11/20/22 23:59 23:59 23:59 23:59 Intake Total 3050 4200 4550 1000 Output Total 230 800 Balance 3050 4200 4320 200 Meds/Results Medications: Active Medications Generic Name Dose Rout
--- NOTE | 2022-11-20 11:21 | PM.IMPN ---
Progress Note: A&P Assessment and Plan (1) Acute necrotizing pancreatitis: Code(s): K85.91 - Acute pancreatitis with uninfected necrosis, unspecified Status: Acute Assessment and Plan: Patient presents with abdominal pain. CT of the abdomen/pelvis showing acute necrotic pancreatitis with diffuse hepatic steatosis.The GB was normal. Lipase was 9186. Abd US showing diffuse hepatic steatosis but no gallstones or evidence of cholecystitis. TG 229. Suspect pancreatitis related to alcoholism. GI consulted. Patient made NPO. WBC remaining normal but with 36% bandemia. Sinus tachycardia related to the pancreaittis and 3rd spacing of fluids. IVF rate was increased. Bandemia better today at 24%. HR coming down. IV fluid rate decreased. Lipase still trending down. Repeat imaging showing no PE but worsening necrotic pnacreatitis, small ascites and moderate pleural effusions. Monitor clinically and with serial lipase values. Continue IV fluids at current rate. Continue Zosyn per GI. (2) Ileus: Code(s): K56.7 - Ileus, unspecified Status: Acute Assessment and Plan: Abd xray showing dilated SB c/w adynamic ileus. NGT in place. NGT output at 800mL. CT overnight did not show dilated bowel. Now having BMs. Ileus resolving. Clamp NGT. (3) Alcoholism: Code(s): F10.20 - Alcohol dependence, uncomplicated Status: Acute Assessment and Plan: Patient drinks alcohol daily with increased amount when in [place] recently. CIWA score 0-4 range. Continue Thiamine and Folate. Medications available as needed for s/sx of withdrawal. Patient was educated about the benefits of abstaining from alcohol. (4) Hyperglycemia: Code(s): R73.9 - Hyperglycemia, unspecified Status: Acute Assessment and Plan: Glucose elevated on admission and became higher. A1c 5.4. Hyperglycemia related to pancreatic dysfunction. Continue AccuCheks covering with sliding scale. Hypoglycemia protocol available as needed. Continue Lantus (5) Elevated LFTs: Code(s): R79.89 - Other specified abnormal findings of blood chemistry Status: Acute Assessment and Plan: LFTs elevated related to above. Could also be related to alcoholic hepatitis and/or hepatic steatosis. Hepatitis panel and HIV negative. Imaging as mentioned above. Continue to monitor (6) Hepatic steatosis: Code(s): K76.0 - Fatty (change of) liver, not elsewhere classified Status: Acute Assessment and Plan: Lipid panel noted. As above. Subjective Date/time seen: 11/20/22 11:21 Interval history: 22yo healthy male here for abdominal pain and found to have pancreatitis. in the room and she translates. He feels much better. He feels hungry. No CP or SOB. +back pain. +BMs Exam Narrative: AF 98.3 146/81 118 18 98% ra Gen - NARD HEENT - NG tube secured draining brown colored fluid Chest - decreased BS in the bases o/w clear. nml RR CV - tachycardic, regular. Tele showing sinus tachycardia with improvement in his rate Abd - Soft, hypoactive BS, diffusely tender and mildly distended Ext - No pedal edema Psych - Nml mood and affect Skin - Warm and dry Objective Data Vital Signs Vital Signs: Vital Signs - 24 hr 11/19/22 12:07 11/19/22 12:00 11/19/22 12:00 Temperature 97.4 F L Pulse Rate 149 H 149 H Pulse Rate [Left Radial] 141 H Respiratory Rate 18 18 Blood Pressure 123/86 123/86 Pulse Oximetry 94 94 Oxygen Delivery Room Air 11/19/22 16:00 11/19/22 12:00 11/19/22 16:00 Temperature 99.8 F H Pulse Rate 148 H 141 H 151 H Pulse Rate [Left Radial] Respiratory Rate 20 Blood Pressure 132/90 Pulse Oximetry 94 Oxygen Delivery 11/19/22 16:00 11/19/22 16:00 11/19/22 20:11 Temperature 97.8 F Pulse Rate 151 H 134 H Pulse Rate [Left Radial] 141 H Respiratory Rate 20 18 Blood Pressure 132/90 136/93 H Pulse Oximetry 94 94 Oxygen Delivery Room
[2022-11-20] MEDS: SODIUM CHLORIDE 0.9% IV 1,000 ML 150 ML IV CONT ×2 (11:45→18:59)
[2022-11-20 12:30] LABS: Glucose Point of Care 257 mg/dl (65-105)
[2022-11-20 12:55] LABS: Glucose Point of Care 194 mg/dl (65-105)
[2022-11-20 13:49] LABS: Glucose Point of Care 237 mg/dl (65-105)
[2022-11-20 14:42] LABS: Glucose Point of Care 262 mg/dl (65-105)
[2022-11-20] MEDS: INSULIN ASPART (*BKC) 100 UNITS/ML SUB-Q (16:53)
[2022-11-20 17:04] LABS: Glucose Point of Care 384 mg/dl (65-105)
[2022-11-20 20:33] LABS: Glucose Point of Care 232 mg/dl (65-105)
[2022-11-20] MEDS: ACETAMINOPHEN 325 MG TABLET 650 MG PO (20:46)
[2022-11-21] VITALS (9 sets, daily range): BP systolic 110–144; BP diastolic 71–87; PULSE 99–127; RESP 16–18; TEMP 36.1–37.2; O2SAT 95–98
[2022-11-21] MEDS: SODIUM CHLORIDE 0.9% IV 1,000 ML 150 ML IV CONT ×4 (02:55→21:18)
[2022-11-21] MEDS: HYDROmorphone HCL INJ (*CRX) 1 MG/ML SYR IV PUSH ×2 (04:38→10:28)
[2022-11-21 05:34] LABS: Hemoglobin 11.3 g/dL (14.0-18.0); Mean Corpuscular HGB Conc 34.2 g/dl (32-36); Mean Corpuscular Volume 90.4 fl (80-100); Mean Platelet Volume 9.6 fl (7.4-10.4); Platelet Count Result 178 k/mm3 (150-375); Red Blood Count 3.65 M/mm3 (4.6-6.20)
[2022-11-21 05:43] LABS: Alanine Aminotransferase 83 U/L (6-50); Alkaline Phosphatase 76 U/L (38-126); Anion Gap 4 mmol/L (8-16); Aspartate Amino Transferase 115 U/L (17-59); Bilirubin,Total 3.1 mg/dL (0.2-1.3); Blood Urea Nitrogen 7 mg/dL (9-20); Calcium 7.3 mg/dL (8.4-10.2); Carbon Dioxide 23 mmol/L (22-30); Chloride 101 mmol/L (98-107); Estimated CRCL calculation 179 ml/min; Estimated Glomerular Filt Rate > 60; Glucose 252 mg/dL (65-110); Lipase 386 U/L (23-300); Potassium 3.2 mmol/L (3.4-5.0); Sodium 128 mmol/L (137-145)
[2022-11-21 06:50] LABS: Band Neutrophils Percent 7 % (0-6); Basophils Absolute Manual 0.06 K/mm3 (0.0-0.1); Basophils Percent Manual 1 % (0-1); Eosinophils Absolute Manual 0.06 K/mm3 (0.02-0.5); Eosinophils Percent Manual 1 % (0-4); Lymphocytes Absolute Manual 0.72 K/mm3 (1.1-4.5); Monocytes Absolute Manual 0.42 K/mm3 (0.1-0.90); Monocytes Percent Manual 7 % (3-9); Neutrophils Absolute Manual 4.74 K/mm3 (1.3-6.7); Neutrophils Percent Manual 72 % (46-73); Platelet Estimate Adequate (Adequate); Total Cells Counted 100
[2022-11-21 06:51] LABS: Dohle Bodies Present (NORMAL); Schistocytes None Seen (NORMAL)
--- NOTE | 2022-11-21 08:05 | WPDGIPROGNO ---
Progress Note: A&P Assessment and Plan (1) Alcoholism: Code(s): F10.20 - Alcohol dependence, uncomplicated Status: Acute Assessment and Plan: Alcohol as etiology of his acute necrotizing pancreatitis. Patient needs to have strict alcohol avoidance. This is strongly encouraged. Discussed with patient and . (2) Acute necrotizing pancreatitis: Code(s): K85.91 - Acute pancreatitis with uninfected necrosis, unspecified Status: Acute Assessment and Plan: Patient with pancreatitis and necrotizing features. Lipase has decreased. Currently 386 today. He has no pain. Ileus has resolved. Plan to advance diet. Tolerating liquids so far. Gradually advance to a low fat diet. Increase activity. No need for antibiotics as no infection has been identified. (3) Elevated LFTs: Code(s): R79.89 - Other specified abnormal findings of blood chemistry Status: Acute (4) Ileus: Code(s): K56.7 - Ileus, unspecified Status: Acute Assessment and Plan: Ileus has resolved. NG tube out. patient is passing bowel movements. Will begin doing advance diet. Subjective Date/time seen: 11/21/22 08:05 Interval history: Patient alert much more comfortable this morning. Tolerating liquid diet with no increase in pain. His pass several bowel movements. Denies any abdominal pain on palpation today. No particular appetite at present. Review of Systems Review of Systems: Review of systems noncontributory. Exam Narrative: Physical exam is alert. Patient is afebrile and anicteric. Lungs are clear. Heart without murmur. Abdomen bowel sounds present soft nontender with no organomegaly. Objective Data Vital Signs Vital Signs: Vital Signs - 24 hr 11/20/22 08:47 11/20/22 10:00 11/20/22 12:00 Temperature 98.3 F 97.4 F L Pulse Rate 121 H 118 H 123 H Respiratory Rate 18 18 Blood Pressure 146/81 H 143/88 H Pulse Oximetry 98 100 Oxygen Delivery 11/20/22 12:00 11/20/22 12:00 11/20/22 13:59 Temperature Pulse Rate 136 H 116 H Respiratory Rate Blood Pressure Pulse Oximetry 100 Oxygen Delivery Room Air 11/20/22 16:00 11/20/22 16:00 11/20/22 16:00 Temperature 97.4 F L Pulse Rate 125 H 119 H Respiratory Rate 20 Blood Pressure 143/91 H Pulse Oximetry 95 95 Oxygen Delivery Room Air 11/20/22 18:00 11/20/22 20:00 11/20/22 20:00 Temperature 97.8 F Pulse Rate 114 H 113 H 113 H Respiratory Rate 20 20 Blood Pressure 131/70 Pulse Oximetry 94 94 Oxygen Delivery Room Air 11/20/22 20:00 11/20/22 23:25 11/20/22 22:00 Temperature 99.6 F Pulse Rate 115 H 104 H 108 H Respiratory Rate 18 Blood Pressure 139/86 Pulse Oximetry 96 Oxygen Delivery 11/21/22 00:00 11/21/22 00:00 11/21/22 01:59 Temperature Pulse Rate 104 H 108 H 99 Respiratory Rate 18 Blood Pressure Pulse Oximetry 96 Oxygen Delivery Room Air 11/21/22 04:00 11/21/22 04:00 11/21/22 04:00 Temperature 97.8 F Pulse Rate 99 127 H 105 H Respiratory Rate 18 18 Blood Pressure 110/71 Pulse Oximetry 96 97 Oxygen Delivery Room Air 11/21/22 06:00 Temperature Pulse Rate 109 H Respiratory Rate Blood Pressure Pulse Oximetry Oxygen Delivery Intake/Output Intake/Output: Intake & Output 11/18/22 11/19/22 11/20/22 11/21/22 23:59 23:59 23:59 23:59 Intake Total 4200 4550 4080 1300 Output Total 230 1625 Balance 4200 4320 2455 1300 Meds/Results Medications: Active Medications Generic Name Dose Route Start Last Admin Trade Name Freq PRN Reason Stop Dose Admin Chlordiazepoxide HCl 25 mg 11/17/22 18:00 Chlordiazepoxide (*Crx) 25 Mg Capsule PO Q6H PRN Withdrawal Dextrose 12.5 gm 11/18/22 05:42 Dextrose 50% 25 Gm/50 Ml Syringe IV PUSH PRN PRN Hypoglycemia Protocol Folic Acid 1 mg 11/18/22 09:00 11/20/22 08:13 Folic Acid 1 Mg/0.2 Ml Inj IV PUS
[2022-11-21] MEDS: INSULIN ASPART (*BKC) 100 UNITS/ML SUB-Q ×4 (08:32→21:13)
[2022-11-21] MEDS: INSULIN GLARGINE (*BKC) 100 UNITS/ML 8 UNITS SUB-Q (08:34)
[2022-11-21] MEDS: THIAMINE HCL 200 MG/2 ML VIAL 100 MG IV PUSH (08:34)
[2022-11-21] MEDS: FOLIC ACID 1 MG/0.2 ML INJ IV PUSH (08:35)
[2022-11-21 08:38] LABS: Glucose Point of Care 313 mg/dl (65-105)
--- NOTE | 2022-11-21 12:17 | PM.IMPN ---
Progress Note: A&P Assessment and Plan (1) Acute necrotizing pancreatitis: Code(s): K85.91 - Acute pancreatitis with uninfected necrosis, unspecified Status: Acute Assessment and Plan: Patient presents with abdominal pain. CT of the abdomen/pelvis showing acute necrotic pancreatitis with diffuse hepatic steatosis.The GB was normal. Lipase was 9186. Abd US showing diffuse hepatic steatosis but no gallstones or evidence of cholecystitis. TG 229. Suspect pancreatitis related to alcoholism. GI consulted. Patient NPO. Repeat lipase trending down. WBC remaining normal but with 36% bands and now having low grade fevers related to pancreatitis. Sinus tachycardia worse probably related to the pancreaittis and 3rd spacing of fluids. IVF rate increased. Monitor clinically and with serial lipase values. Continue IV fluids at current rate. Continue Zosyn per GI. Check KUB to exclude ileus. Repeat CT abd in a few days to assess pancreatic necrosis. Move to IMU. (2) Alcoholism: Code(s): F10.20 - Alcohol dependence, uncomplicated Status: Acute Assessment and Plan: Patient drinks alcohol daily with increased amount when in [place] recently. CIWA score 0-4 range. Continue Thiamine and Folate. Medications available as needed for s/sx of withdrawal. Patient was educated about the benefits of abstaining from alcohol. (3) Hyperglycemia: Code(s): R73.9 - Hyperglycemia, unspecified Status: Acute Assessment and Plan: Glucose elevated on admission and higher now. A1c 5.4. Hyperglycemia related to pancreatic dysfunction. Continue AccuCheks covering with sliding scale. Hypoglycemia protocol available as needed. Add low dose Lantus (4) Elevated LFTs: Code(s): R79.89 - Other specified abnormal findings of blood chemistry Status: Acute Assessment and Plan: LFTs elevated related to above. Could also be related to alcoholic hepatitis. Hepatitis panel pending; HIV negative. Imaging as mentioned above. Continue to monitor (5) Hepatic steatosis: Code(s): K76.0 - Fatty (change of) liver, not elsewhere classified Status: Acute Assessment and Plan: Lipid panel noted. As above. Plan 40 minutes spent on critical care time Subjective Date/time seen: 11/21/22 12:17 Interval history: no new issues Exam Narrative: AF 98.3 146/81 118 18 98% ra Gen - NARD HEENT - NG tube secured draining brown colored fluid Chest - decreased BS in the bases o/w clear. nml RR CV - tachycardic, regular. Tele showing sinus tachycardia with improvement in his rate Abd - Soft, hypoactive BS, diffusely tender and mildly distended Ext - No pedal edema Psych - Nml mood and affect Skin - Warm and dry Objective Data Vital Signs Vital Signs: Vital Signs - 24 hr 11/20/22 13:59 11/20/22 16:00 11/20/22 16:00 Temperature 97.4 F L Pulse Rate 116 H 125 H Respiratory Rate 20 Blood Pressure 143/91 H Pulse Oximetry 95 95 Oxygen Delivery Room Air 11/20/22 16:00 11/20/22 18:00 11/20/22 20:00 Temperature 97.8 F Pulse Rate 119 H 114 H 113 H Respiratory Rate 20 Blood Pressure 131/70 Pulse Oximetry 94 Oxygen Delivery 11/20/22 20:00 11/20/22 20:00 11/20/22 23:25 Temperature 99.6 F Pulse Rate 113 H 115 H 104 H Respiratory Rate 20 18 Blood Pressure 139/86 Pulse Oximetry 94 96 Oxygen Delivery Room Air 11/20/22 22:00 11/21/22 00:00 11/21/22 00:00 Temperature Pulse Rate 108 H 104 H 108 H Respiratory Rate 18 Blood Pressure Pulse Oximetry 96 Oxygen Delivery Room Air 11/21/22 01:59 11/21/22 04:00 11/21/22 04:00 Temperature Pulse Rate 99 99 127 H Respiratory Rate 18 Blood Pressure Pulse Oximetry 96 Oxygen Delivery Room Air 11/21/22 04:00 11/21/22 06:00 11/21/22 08:00 Temperature 97.8 F 97.8 F Pulse Rate 105 H 109 H 115 H Respiratory Rate 18 18 Blood Pressure 110/71 138/86 Pulse Oxime
[2022-11-21 13:48] LABS: Glucose Point of Care 250 mg/dl (65-105)
[2022-11-21] MEDS: oxyCODONE HCL (*CRX) 5 MG TAB IR PO ×2 (15:39→21:18)
[2022-11-21 16:34] LABS: Glucose Point of Care 268 mg/dl (65-105)
[2022-11-21 20:09] LABS: Glucose Point of Care 249 mg/dl (65-105)
[2022-11-21] MEDS: ONDANSETRON INJ 4 MG/2 ML VIAL IV PUSH (21:13)
[2022-11-22] VITALS: BP 151/81; PULSE 102; PULSE 91; RESP 16; TEMP 36.8; O2SAT 98
[2022-11-22 04:00] VITALS: PULSE 99
[2022-11-22] MEDS: SODIUM CHLORIDE 0.9% IV 1,000 ML 150 ML IV CONT (04:44)
[2022-11-22] MEDS: oxyCODONE HCL (*CRX) 5 MG TAB IR PO (04:44)
[2022-11-22] MEDS: ONDANSETRON INJ 4 MG/2 ML VIAL IV PUSH (04:51)
--- NOTE | 2022-11-22 05:15 | PC.NURSE ---
On 11/21/22-11/22/22, the license pending RN, Rick Crespo, provided care and completed [facility] documentation on this patient. I have reviewed the RN's documentation and agree with the findings.
[2022-11-22 05:36] LABS: Basophils Absolute Auto 0.1 K/mm3 (0.0-0.1); Basophils Percent Auto 1.2 % (0.2-1.2); Eosinophils Absolute Auto 0.1 K/mm3 (0-0.3); Eosinophils Percent Auto 1.1 % (0-4.4); Hematocrit 33.6 % (42.0-52.0); Hemoglobin 11.5 g/dL (14.0-18.0); Immature Granulocyte Absolute 0.32 K/mm3 (0.00-0.031); Immature Granulocyte Percent A 4.9 % (0-0.5); Lymphocytes Absolute Auto 1.21 K/mm3 (0.9-3.2); Lymphocytes Percent Auto 18.4 % (18.3-44.2); Mean Corpuscular HGB Conc 34.2 g/dl (32-36); Mean Corpuscular Hemoglobin 30.9 pg (26-34); Mean Corpuscular Volume 90.3 fl (80-100); Mean Platelet Volume 9.9 fl (7.4-10.4); Monocytes Absolute Auto 0.9 K/mm3 (0.1-0.6); Monocytes Percent Auto 13.6 % (2.6-8.5); Neutrophils Percent Auto 60.8 % (45.5-73.1); Nucleated Red Blood Cells Perc 0.3 % (0.0-0.2); Platelet Count Result 202 k/mm3 (150-375); Red Blood Count 3.72 M/mm3 (4.6-6.20); Red Cell Distribution Width 12.1 % (11.5-14.5); White Blood Count 6.6 K/mm3 (4.5-10.0)
[2022-11-22 05:49] LABS: Alanine Aminotransferase 172 U/L (6-50); Albumin Level 3.2 g/dL (3.5-5.1); Alkaline Phosphatase 113 U/L (38-126); Anion Gap 5 mmol/L (8-16); Aspartate Amino Transferase 290 U/L (17-59); Bilirubin,Total 3.8 mg/dL (0.2-1.3); Blood Urea Nitrogen 6 mg/dL (9-20); Calcium 7.6 mg/dL (8.4-10.2); Carbon Dioxide 25 mmol/L (22-30); Chloride 99 mmol/L (98-107); Estimated CRCL calculation 211 ml/min; Estimated Glomerular Filt Rate > 60; Glucose 279 mg/dL (65-110); Lipase 160 U/L (23-300); Potassium 3.2 mmol/L (3.4-5.0); Sodium 129 mmol/L (137-145)
[2022-11-22 07:16] VITALS: BP 140/81; PULSE 95; RESP 20; TEMP 36.4; O2SAT 98
[2022-11-22 08:00] VITALS: PULSE 102
[2022-11-22 08:36] LABS: Glucose Point of Care 277 mg/dl (65-105)
[2022-11-22] MEDS: THIAMINE HCL 200 MG/2 ML VIAL 100 MG IV PUSH (08:48)
[2022-11-22] MEDS: INSULIN GLARGINE (*BKC) 100 UNITS/ML 8 UNITS SUB-Q (08:49)
[2022-11-22] MEDS: INSULIN ASPART (*BKC) 100 UNITS/ML SUB-Q ×2 (08:49→11:55)
[2022-11-22] MEDS: FOLIC ACID 1 MG/0.2 ML INJ IV PUSH (09:01)
--- NOTE | 2022-11-22 11:03 | PM.DS ---
DS: Admitting Diagnosis Discharge Date November 22, 2022 Admitting Diagnosis Pancreatitis DS: Discharge Diagnosis Discharge Diagnosis (1) Acute necrotizing pancreatitis: Code(s): K85.91 - Acute pancreatitis with uninfected necrosis, unspecified Status: Acute Assessment and Plan: Patient presents with abdominal pain. CT of the abdomen/pelvis showing acute necrotic pancreatitis with diffuse hepatic steatosis.The GB was normal. Lipase was 9186. Abd US showing diffuse hepatic steatosis but no gallstones or evidence of cholecystitis. TG 229. Suspect pancreatitis related to alcoholism. GI consulted. Patient NPO. Repeat lipase trending down. WBC remaining normal but with 36% bands and now having low grade fevers related to pancreatitis. Sinus tachycardia worse probably related to the pancreaittis and 3rd spacing of fluids. IVF rate increased. Monitor clinically and with serial lipase values. Continue IV fluids at current rate. Continue Zosyn per GI. Check KUB to exclude ileus. Repeat CT abd in a few days to assess pancreatic necrosis. Move to IMU. (2) Alcoholism: Code(s): F10.20 - Alcohol dependence, uncomplicated Status: Acute Assessment and Plan: Patient drinks alcohol daily with increased amount when in [place] recently. CIWA score 0-4 range. Continue Thiamine and Folate. Medications available as needed for s/sx of withdrawal. Patient was educated about the benefits of abstaining from alcohol. (3) Hyperglycemia: Code(s): R73.9 - Hyperglycemia, unspecified Status: Acute Assessment and Plan: Glucose elevated on admission and higher now. A1c 5.4. Hyperglycemia related to pancreatic dysfunction. Continue AccuCheks covering with sliding scale. Hypoglycemia protocol available as needed. Add low dose Lantus (4) Elevated LFTs: Code(s): R79.89 - Other specified abnormal findings of blood chemistry Status: Acute Assessment and Plan: LFTs elevated related to above. Could also be related to alcoholic hepatitis. Hepatitis panel pending; HIV negative. Imaging as mentioned above. Continue to monitor (5) Hepatic steatosis: Code(s): K76.0 - Fatty (change of) liver, not elsewhere classified Status: Acute Assessment and Plan: Lipid panel noted. As above. Plan 40 minutes spent on critical care time DS: Summary Hospital Course Hospital Course: 22-year-old came in with alcoholic pancreatitis. Treated conservatively pain is better controlled. Lipase is normal. He will need to follow up with GI in follow-up with his primary care physician. He is tolerating a diet and can be discharged Time Spent with Patient Time attestation: Total time spent providing and/or coordinating discharge services: Exam Narrative: AF 98.3 146/81 118 18 98% ra Gen - NARD HEENT - NG tube secured draining brown colored fluid Chest - decreased BS in the bases o/w clear. nml RR CV - tachycardic, regular. Tele showing sinus tachycardia with improvement in his rate Abd - Soft, hypoactive BS, diffusely tender and mildly distended Ext - No pedal edema Psych - Nml mood and affect Skin - Warm and dry DS: Data Data Completed and Pending Labs on day of discharge: Labs from last 24 hours 11/22/22 11/22/22 11/21/22 08:29 04:58 19:44 WBC 6.6 RBC 3.72 L Hgb 11.5 L Hct 33.6 L MCV 90.3 MCH 30.9 MCHC 34.2 RDW 12.1 Plt Count 202 MPV 9.9 Immature Gran % (Auto) 4.9 H Neut % (Auto) 60.8 Lymph % (Auto) 18.4 Morrill % (Auto) 13.6 H Eos % (Auto) 1.1 Baso % (Auto) 1.2 Lymph # (Auto) 1.21 Morrill # (Auto) 0.9 H Eos # (Auto) 0.1 Baso # (Auto) 0.1 Abs Immat Gran (auto) 0.32 H Absolute Neuts (auto) 4.0 Absolute Nucleated RBC 0.0 Nucleated RBC % 0.3 H Sodium 129 L Potassium 3.2 L Chloride 99 Carbon Dioxide 25 Anion Gap 5 L BUN 6 L Creatinine 0.50 L Estim Creat Marla
[2022-11-22 11:53] LABS: Glucose Point of Care 317 mg/dl (65-105)
[2022-11-22 14:33] VITALS: BP 140/92; PULSE 98; RESP 18; TEMP 37.3; O2SAT 100
--- NOTE | 2022-11-22 14:33 | WPDGIPROGNO ---
Progress Note: A&P Assessment and Plan (1) Acute necrotizing pancreatitis: Code(s): K85.91 - Acute pancreatitis with uninfected necrosis, unspecified Status: Acute Assessment and Plan: Patient with acute necrotizing pancreatitis. Clinically improving. Now tolerating diet. Plan to discharge home low-fat diet. Anticipate follow-up as an outpatient follow-up lipase and liver tests should be done in 1 week. Follow-up with primary care service initially. Can follow up in the GI service of if abdominal pain or symptoms persists. Strict alcohol avoidance strongly encouraged. (2) Alcoholism: Code(s): F10.20 - Alcohol dependence, uncomplicated Status: Acute Subjective Date/time seen: 11/22/22 14:33 Interval history: Patient alert comfortable this morning. Tolerating diet. Having regular bowel movements. Denies abdominal pain. Review of Systems Review of Systems: Review of systems noncontributory. Exam Narrative: Physical exam reveals patient be alert. Vital signs stable. Comfortable at rest. HEENT exam reveals no icterus. Lungs are clear. Heart without murmur. Abdomen bowel sounds are present much softer abdomen nontender no organomegaly evident. Objective Data Vital Signs Vital Signs: Vital Signs - 24 hr 11/21/22 16:00 11/21/22 16:00 11/21/22 20:00 Temperature 97 F L 98.9 F Pulse Rate 116 H 110 H 105 H Respiratory Rate 16 16 Blood Pressure 144/87 H 144/85 H Pulse Oximetry 95 98 Oxygen Delivery 11/21/22 20:00 11/21/22 20:00 11/22/22 00:00 Temperature 98.2 F Pulse Rate 103 H 103 H 91 Respiratory Rate 16 16 Blood Pressure 151/81 H Pulse Oximetry 98 98 Oxygen Delivery Room Air 11/22/22 00:00 11/22/22 04:00 11/22/22 07:16 Temperature 97.6 F Pulse Rate 102 H 99 95 Respiratory Rate 20 Blood Pressure 140/81 Pulse Oximetry 98 Oxygen Delivery 11/22/22 08:00 Temperature Pulse Rate Respiratory Rate Blood Pressure Pulse Oximetry Oxygen Delivery Room Air Intake/Output Intake/Output: Intake & Output 11/19/22 11/20/22 11/21/22 11/22/22 23:59 23:59 23:59 23:59 Intake Total 4550 4080 4860 1840 Output Total 230 1625 Balance 4320 2455 4860 1840 Meds/Results Medications: Active Medications Generic Name Dose Route Start Last Admin Trade Name Freq PRN Reason Stop Dose Admin Chlordiazepoxide HCl 25 mg 11/17/22 18:00 Chlordiazepoxide (*Crx) 25 Mg Capsule PO Q6H PRN Withdrawal Dextrose 12.5 gm 11/18/22 05:42 Dextrose 50% 25 Gm/50 Ml Syringe IV PUSH PRN PRN Hypoglycemia Protocol Folic Acid 1 mg 11/18/22 09:00 11/22/22 09:01 Folic Acid 1 Mg/0.2 Ml Inj IV PUSH 1 mg QAM NICHOLE Administration Glucagon 1 mg 11/18/22 05:42 Glucagon For Inj 1 Mg Vial IM PRN PRN Hypoglycemia Protocol Glucose 15 gm 11/18/22 05:42 Glucose Oral Gel 15 Gm Of Glucse In 37.5 Gm Tube PO PRN PRN Hypoglycemia Protocol Haloperidol Lactate 2 mg 11/17/22 18:00 Haloperidol Lactate 5 Mg/Ml Vial IV PUSH Q2H PRN Delirium Sodium Chloride 1,000 mls @ 150 mls/hr 11/17/22 13:35 11/22/22 04:44 Normal Saline Iv IV CONT 150 mls/hr .[id number] NICHOLE Administration Dextrose 1,000 mls @ 100 mls/hr 11/18/22 05:42 Dextrose 5% 1,000 Ml IVPB PRN PRN Hypoglycemia Protocol Insulin Aspart 2 - 5 units 11/20/22 17:00 11/22/22 11:55 Insulin Aspart (*Bkc) 100 Units/Ml SUB-Q 4 units TIDWM NICHOLE Administration Protocol Insulin Glargine 8 units 11/19/22 09:15 11/22/22 08:49 Insulin Glargine (*Bkc) 100 Units/Ml SUB-Q 8 units QAM NICHOLE Administration Lorazepam 2 mg 11/17/22 18:00 11/19/22 06:00 Lorazepam Inj (*Crx) 2 Mg/Ml Vial IV PUSH 2 mg Q4H PRN Administration Withdrawal Ondansetron HCl 4 mg 11/17/22 13:35 11/22/22 04:51 Ondansetron Inj 4 Mg/2 Ml Vial IV PUSH 4 mg Q4H PRN Administ
== END 2022-11-22 16:00 | disposition home or self-care (01) | DRG 282 ==
LOC: ANHED 12:01 → ANH3MED 14:16 → ANHIMU 11-19 11:07 → ANH2MED 11-22 11:03 → ANHIMU 11-23 14:42
PROVIDERS: Emergency Medicine; Hospitalist; Nurse Practitioner; Admitting Provider Internal Medicine; Emergency Provider Emergency Medicine; Visit Provider Chiropractor
DX: K85.21 Alcohol induced acute pancreatitis with uninfected necrosis (principal); K76.0 Fatty (change of) liver, not elsewhere classified; K56.0 Paralytic ileus; F10.20 Alcohol dependence, uncomplicated; R73.9 Hyperglycemia, unspecified
CPT/HCPCS: 36415; 71275; 74177; 76705; 80053; 80061; 80074; 80307; 81001; 82948; 83036; 83615; 83690; 83735; 85025; 86703; 87040; 93005; 96361; 96374; 96375; 99285; A9270; G0378; G0432; J1170; J1815; J2060; J2405; J2543; J3411; J3475; J7030; Q9967